=== PATIENT | female | born 1995 | race Caucasian/White ===

== ENCOUNTER 2016-11-02 06:00 | Inpatient (IN) | payer BC, OTHER ==
[2016-11-02] MEDS ORDERED: ceFAZolin 2 GM in SODIUM CHLORIDE 0.9% 100 ML IVPB ONE (10:22)
[2016-11-02] MEDS ORDERED: CITRIC ACID-SODIUM CITRATE 15 ML CUP PO ONE (10:22)
[2016-11-02 10:44] VITALS: BMI 31.4
[2016-11-02] MEDS: LACTATED RINGERS 1,000 ML IV SCH ×2 (11:17→17:39)
[2016-11-02 11:24] LABS: Basophils % (A) 0 %; CH 32.6; CHCM 35.7; Eosinophils # (A) 0.1 k/uL (0-0.7); Eosinophils % (A) 1 %; HCT 33.4 % (34.0-46.0); HDW 2.68; HGB 11.4 gm/dL (11.4-16.0); Luc # (Auto) 0.26; Luc % (Auto) 2; Lymphocytes # (A) 1.5 k/uL (1.0-4.8); Lymphocytes % (A) 12 %; MCH 31.4 pg (25.0-35.0); MCHC 34.2 g/dL (31.0-37.0); MCV 91.9 fL (80.0-100.0); Mean Platelet Volume 8.1; Monocytes # (A) 0.6 k/uL (0-1.0); Monocytes % (A) 5 %; Neutrophils % (A) 81 %; RBC 3.63 m/uL (3.80-5.40); RDW 14.3 % (11.5-15.5); WBC 12.4 k/uL (3.8-10.6); WBC (Perox) 13.12
[2016-11-02] MEDS ORDERED: PHENYLEPHRINE-0.9% NACL SYG 1 MG/10 ML SYRINGE ONE (11:59)
[2016-11-02] MEDS ORDERED: MORPHINE SULFATE (PF) 0.3 MG/0.3 ML SYR ONE (11:59)
[2016-11-02] MEDS ORDERED: NALBUPHINE 10 MG/ML AMPUL ONE (11:59)
[2016-11-02] MEDS ORDERED: ONDANSETRON 4 MG/2 ML VIAL ONE (11:59)
[2016-11-02] MEDS ORDERED: KETOROLAC 30 MG/ML 1 ML VIAL ONE (11:59)
[2016-11-02] MEDS ORDERED: OXYTOCIN 10 UNIT/ML 1 ML VIAL ONE (11:59)
[2016-11-02] MEDS ORDERED: NALOXONE 0.4 MG/ML 1 ML VIAL IV PRN ×2 (12:26→12:55)
[2016-11-02] MEDS ORDERED: ONDANSETRON 4 MG/2 ML VIAL IVP PRN ×2 (12:26→12:55)
[2016-11-02] MEDS ORDERED: diphenhydrAMINE 50 MG/ML 1 ML VIAL IVP PRN ×3 (12:26→12:55)
--- NOTE | 2016-11-02 12:49 | P.HPOB ---
History of Present Illness H&P Date: 11/02/16 This is a 21-year-old white female 1 para 0 EDC 11/06/2016 at 39-3/7 weeks' gestation. Patient presented today with known breech presentation for primary low transverse section. Clinically I believe the infant is on the larger side. Fetus has been active throughout the . She denies vaginal bleeding, fluid leakage, or uterine contractions. Past obstetric history is significant for blood type O+, rubella status immune. Group B strep cultures negative. Hepatitis B surface antigen, Pap smear, gonorrhea and chlamydia cultures, urine culture, VDRL testing all negative. Past medical history is unremarkable. Past surgical history is negative. Current medications Colace as needed, vitamins daily. ALLERGIES none known. Social history patient is single, she previously smoked one half pack tobacco per day, she denies alcohol or drug use. On exam this is a pleasant white female, she is 5 foot 5 inches, 172 pounds, initial blood pressure 104/67, vital signs are stable and she is afebrile. The general physical exam is within normal limits. is breech, confirmed by bedside ultrasound with head in the left upper maternal quadrant. heart rate consistent with reactive NST. Cervix is closed, posterior, 50%, firm. Impression: 39-3/7 weeks intrauterine , breech presentation. Plan For primary low transverse section. All risks benefits and alternatives have been discussed with the patient in detail. Review of Systems Negative except as in HPI. Past Medical History Past Medical History: No Reported History History of Any Multi-Drug Resistant Organisms: None Reported Past Surgical History: No Surgical Hx Reported Past Anesthesia/Blood Transfusion Reactions: No Reported Reaction Past Psychological History: Anxiety, Depression Smoking Status: Never smoker Past Alcohol Use History: None Reported Past Drug Use History: None Reported - Past Family History Mother Family Medical History: Hypertension Medications and Allergies Home Medications Medication Instructions Recorded Confirmed Type Pnv,Calcium 72/Iron/Folic Acid 1 tab PO DAILY 11/02/16 11/02/16 History [ Plus Tablet] Allergies Allergy/AdvReac Type Severity Reaction Status Date / Time No Known Allergies Allergy Verified 11/02/16 10:22 Exam - Vital Signs Vital signs: Vital Signs Temp Pulse Resp BP 11/02/16 10:21 97.2 F L 118 H 18 104/67 Intake and Output 11/01/16 11/02/16 11/02/16 22:59 06:59 14:59 Other: Weight 78.018 kg Patient Weight 11/03/16 06:59 Weight 78.018 kg See full dictation under HPI. Results Result Diagrams: 11/02/16 10:50 Abnormal Lab Results - Last 24 Hours (Table) 11/02/16 Range/Units 10:50 WBC 12.4 H (3.8-10.6) k/uL RBC 3.63 L (3.80-5.40) m/uL Hct 33.4 L (34.0-46.0) % Neutrophils # 10.0 H (1.3-7.7) k/uL Assessment and Plan Plan: Close maternal and surveillance. Anticipate unremarkable low transverse section for breech presentation. Time with Patient: Less than 30
[2016-11-02] MEDS ORDERED: Acetaminophen-Codeine 300-30mg TAB PO PRN (12:55)
[2016-11-02] MEDS ORDERED: KETOROLAC 30 MG/ML 1 ML VIAL IVP PRN (12:55)
[2016-11-02] MEDS ORDERED: ZOLPIDEM 5 MG TAB PO PRN (12:55)
[2016-11-02] MEDS ORDERED: METOCLOPRAMIDE 5 MG/ML 2 ML VIAL IVP PRN (12:55)
[2016-11-02] MEDS ORDERED: diphenhydrAMINE 50 MG CAP PO PRN (12:55)
[2016-11-02] MEDS ORDERED: ACETAMINOPHEN TAB 325 MG TAB PO PRN (12:55)
[2016-11-02] MEDS ORDERED: diphenhydrAMINE 25 MG CAP PO PRN (12:55)
--- NOTE | 2016-11-02 12:55 | P.OP ---
Date of Procedure: 11/02/16 Preoperative Diagnosis: Breech presentation at 39-3/7 weeks Postoperative Diagnosis: Matt annita breech fetus Procedure(s) Performed: Primary low transverse section Anesthesia: spinal Surgeon: Carine Steinberg Incubator Operator #1: Dilma Wheeler Estimated Blood Loss (ml): 500 IV fluids (ml): 900 Urine output (ml): 100 Pathology: other (Placenta) Condition: stable Disposition: PACU Description of Procedure: Patient is brought to the operating suite where a spinal with Duramorph analgesia is administered without difficulty. She's placed in the dorsal supine position with left lateral uterine displacement. Hernandez catheter has been placed to direct drainage and urine is clear. Antibiotics are given. The appropriate timeout is performed to assure proper patient and procedural identification. The abdomen is prepped and draped in usual sterile fashion. Analgesia is checked and noted to be adequate. A low transverse skin incision is made in this is carried down through the subcutaneous tissue which is approximately 2 cm deep. The fascia is isolated, scored and extended bilaterally with curved Taylor scissors. Peritoneum is next identified and incised, there is no bowel or bladder involvement. The latter blade is placed over the dome of the bladder and at all times the bladder is Well from the operative field to avoid bladder and/or ureteral injury. A low transverse uterine incision is made in this is extended bluntly. Official amniorrhexis reveals clear urine. is noted to be in the annita breech presentation and the sacrum is delivered anterior. Pinard maneuver is used to deliver the lower extremities. The trunk is brought through the incision. Pinard maneuver is again used to deliver the upper extremities with over ligation of 180 for the left arm. Head is delivered in the flexed position. Patient is officially delivered of a liveborn female at 1216 hrs. Umbilical cord is doubly clamped and ligated, she is handed to waiting nurses for evaluation where scores of 8 and 9 at one and 5 minutes respectively are given. Infant weighs 3680 g or 8 lbs. 2 oz. The placenta is delivered manually, it is inspected and noted to be intact with trivascular cord at 1217 hrs. Uterus is then massaged and externalized. Hemostasis is excellent. Pitocin is given. The uterus is swept clean with a sterile sponge to avoid any retained products of conception. The uterine edges are grasped with Florez clamps and the uterus is closed in a two-step fashion. 0 Vicryl suture is used with 4-0 running locking stitch initially, and an imbricated stitch on top. Bilateral tubes and ovaries are inspected and noted to be normal. Abdomen is suctioned with suction on guard and uterus is gently placed back into the abdominal cavity. Bilateral gutters are inspected and cleaned. The peritoneum was allowed to close by secondary intention. The fascia is closed in a running stitch of 0 Vicryl with over ligation in the midline. Subcutaneous tissue is irrigated, noted to be clean and dry. It is reapproximated with 3-0 Vicryl in a running fashion. 4-0 Monocryl is used for final subcuticular closure. Steri-Strips and Mastisol are applied to the wound. Fundus is then massaged, it is firm and below the umbilicus. Patient is brought back to the recovery room in excellent condition with stable vital signs including a pulse of 88, blood pressure 115/70. Total estimated blood loss 500 mL's. Urine is noted to be clear in the Hernandez tube.
[2016-11-02] MEDS: KETOROLAC 30 MG/ML 1 ML VIAL IVP PRN (19:54)
[2016-11-02] MEDS: SENNOSIDES-DOCUSATE SODIUM 1 EACH TAB PO SCH (23:07)
[2016-11-03] MEDS: LACTATED RINGERS 1,000 ML IV SCH ×4 (01:37→08:20)
[2016-11-03] MEDS: KETOROLAC 30 MG/ML 1 ML VIAL IVP PRN ×2 (04:24→10:27)
--- NOTE | 2016-11-03 07:09 | P.PN ---
Subjective Principal diagnosis: Postoperative day #1 Slept well, positive flatus. No complaints. Objective - Vital Signs Vital signs: Vital Signs Temp 98.4 F 11/03/16 04:00 Pulse 83 11/03/16 04:00 Resp 16 11/03/16 04:00 BP 107/60 11/03/16 04:00 Pulse Ox 97 11/03/16 04:00 Intake & Output 11/02/16 11/03/16 11/03/16 18:59 06:59 18:59 Intake Total 900 1000 Output Total 100 2600 Balance 800 -1600 Weight 78.018 kg Intake: IV 900 1000 Lactated Ringers 1,000 ml 900 1000 @ 125 mls/hr IV .Q8H DWAINE Rx#:[id number] Output: Urine 100 2600 Uretheral (Hernandez) 800 Other: Voiding Method Indwelling Catheter Indwelling Catheter # Voids 1 - Constitutional General appearance: Present: average body habitus, cooperative - EENT Eyes: Present: PERRLA ENT: Present: hearing grossly normal - Neck Neck: Present: normal ROM Thyroid: bilateral: normal size - Respiratory Respiratory: bilateral: CTA - Cardiovascular Rhythm: regular - Gastrointestinal General gastrointestinal: Present: normal bowel sounds - Integumentary Integumentary Comment(s): Incision clean and dry, intact, well approximated, Steri-Strips applied. Fundus firm, mobile, 18 week size, nontender Integumentary: Present: normal - Neurologic Neurologic: Present: CNII-XII intact - Musculoskeletal Musculoskeletal: Present: gait normal, strength equal bilaterally - Labs CBC & Chem 7: 11/02/16 10:50 Labs: Abnormal Lab Results - Last 24 Hours (Table) 11/02/16 Range/Units 10:50 WBC 12.4 H (3.8-10.6) k/uL RBC 3.63 L (3.80-5.40) m/uL Hct 33.4 L (34.0-46.0) % Neutrophils # 10.0 H (1.3-7.7) k/uL Assessment and Plan Plan: Continue postoperative care, advanced diet and activity, Time with Patient: Less than 30
--- NOTE | 2016-11-03 08:11 | P.PN ---
Progress Note - Text Date:11/03 Time:715 Patient is status post . Patient seen this morning with VAS score of 2. c/o of pruritus, no c/o nausea/vomiting, comfortable and doing well.
[2016-11-03 08:32] LABS: Basophils % (A) 0 %; CH 32.3; CHCM 35.3; Eosinophils # (A) 0.1 k/uL (0-0.7); Eosinophils % (A) 1 %; HCT 27.3 % (34.0-46.0); HDW 2.63; Luc # (Auto) 0.18; Luc % (Auto) 2; Lymphocytes # (A) 1.3 k/uL (1.0-4.8); Lymphocytes % (A) 13 %; MCH 31.8 pg (25.0-35.0); MCHC 34.6 g/dL (31.0-37.0); MCV 91.9 fL (80.0-100.0); Monocytes # (A) 0.4 k/uL (0-1.0); Monocytes % (A) 4 %; Neutrophils # (A) 7.6 k/uL (1.3-7.7); Neutrophils % (A) 79 %; RBC 2.97 m/uL (3.80-5.40); WBC 9.6 k/uL (3.8-10.6); WBC (Perox) 10.53
[2016-11-03 08:33] LABS: HGB 9.5 gm/dL (11.4-16.0)
[2016-11-03] MEDS: SENNOSIDES-DOCUSATE SODIUM 1 EACH TAB PO SCH ×2 (10:12→20:15)
[2016-11-03] MEDS: IBUPROFEN 600 MG TAB PO PRN (16:47)
[2016-11-03] MEDS: SIMETHICONE 80 MG CHEWABLE PO PRN (22:27)
[2016-11-03 23:56] VITALS: BP 107/54; PULSE 84; RESP 17; TEMP 98.8
[2016-11-04] MEDS: IBUPROFEN 600 MG TAB PO PRN (04:20)
[2016-11-04] MEDS: SENNOSIDES-DOCUSATE SODIUM 1 EACH TAB PO SCH (07:56)
[2016-11-04] MEDS: SIMETHICONE 80 MG CHEWABLE PO PRN (07:56)
--- NOTE | 2016-11-04 09:03 | P.DS ---
Providers Date of admission: 11/02/16 10:12 Expected date of discharge: 11/04/16 Attending physician: Carine Steinberg Primary care physician: Carson Argueta - Discharge Diagnosis(es) (1) 39 weeks gestation of Current Visit: Yes Status: Acute (2) Breech presentation Current Visit: Yes Status: Acute (3) S/P section Current Visit: Yes Status: Acute Hospital Course: This is a 21-year-old 1 now para 1 woman who is admitted at 39-3/7 weeks gestation for planned primary low transverse section secondary to breech presentation. Please see the history and physical for details. Following admission she went to the operating room where she underwent an unremarkable primary low transverse section. She was delivered of a liveborn female. Please see the operative report for details. The patient's postoperative course was entirely unremarkable. By postoperative day #1 she was ambulating and voiding without difficulty and tolerating a general diet. Her pain was well-controlled. By postoperative day #2 she continued to do well. Her incision was well healing and her vital signs were stable. She had minimal lochia and was breast-feeding successfully. She was therefore discharged home with routine instructions for postoperative care and follow-up. Procedures: Primary low transverse section Patient Condition at Discharge: Good Plan - Discharge Summary New Discharge Prescriptions: New Acetaminophen-Codeine 300-30mg [Tylenol w/codeine #3] 2 each PO Q4HR PRN #20 tab PRN Reason: Moderate To Severe Pain Ibuprofen [Motrin] 600 mg PO Q6HR PRN tab PRN Reason: Mild Pain Or Fever >= 100.5 No Action Pnv,Calcium 72/Iron/Folic Acid [ Plus Tablet] 1 tab PO DAILY Discharge Medication List Pnv,Calcium 72/Iron/Folic Acid [ Plus Tablet] 1 tab PO DAILY 11/02/16 [ History] Acetaminophen-Codeine 300-30mg [Tylenol w/codeine #3] 2 each PO Q4HR PRN #20 tab 11/04/16 [Rx] Ibuprofen [Motrin] 600 mg PO Q6HR PRN tab 11/04/16 [Rx] Follow up Appointment(s)/Referral(s): Carine Steinberg MD [STAFF PHYSICIAN] - 2 Weeks Activity/Diet/Wound Care/Special Instructions: Follow-up in 2 weeks after surgery in the office. Call the office with any concerning signs or symptoms including fever greater than 101, severe abdominal pain, heavy vaginal bleeding, signs of wound infection, increased swelling or redness of the lower extremities, signs of depression. No driving for 2 weeks after surgery. No heavy lifting or vigorous activity until reevaluated in the office. No intercourse for 6 weeks after delivery. Discharge Disposition: HOME SELF-CARE
== END 2016-11-04 13:10 | disposition home or self-care (01) | DRG 766 ==
LOC: 4FBP 10:12
PROVIDERS: ADMIT Obstetrics & Gynecology; ATTEND Obstetrics & Gynecology
PROC: 3E0S3NZ Introduction of Analgesics, Hypnotics, Sedatives into Epidural Space, Percutaneous Approach (ICD-10-PCS; 2016-11-02)
PROC: 10D00Z1 Extraction of Products of Conception, Low, Open Approach (ICD-10-PCS; principal; 2016-11-02 06:00)
DX: O32.1XX0 Maternal care for breech presentation, not applicable or unspecified (principal); Z86.59 Personal history of other mental and behavioral disorders; Z37.0 Single live birth; Z3A.39 39 weeks gestation of pregnancy; Z87.891 Personal history of nicotine dependence; Z82.49 Family history of ischemic heart disease and other diseases of the circulatory system; Z87.19 Personal history of other diseases of the digestive system
CPT/HCPCS: 85025; 86850; 86900; 86901; 88307

== ENCOUNTER 2021-10-26 09:39 | Inpatient (IN) | payer BC, OTHER ==
[2021-10-26] MEDS ORDERED: CITRIC ACID-SODIUM CITRATE 15 ML CUP PO ONE (10:57)
[2021-10-26 11:13] LABS: Basophils % (A) 0 %; Eosinophils # (A) 0.1 k/uL (0-0.7); Eosinophils % (A) 1 %; HGB 11.1 gm/dL (11.4-16.0); Lymphocytes # (A) 1.3 k/uL (1.0-4.8); Lymphocytes % (A) 17 %; MCH 32.1 pg (25.0-35.0); MCHC 34.9 g/dL (31.0-37.0); MCV 92.1 fL (80.0-100.0); Monocytes # (A) 0.4 k/uL (0-1.0); Monocytes % (A) 5 %; Neutrophils % (A) 76 %; Platelet Count 192 k/uL (150-450); RBC 3.47 m/uL (3.80-5.40); RDW 13.3 % (11.5-15.5)
[2021-10-26] MEDS: LACTATED RINGERS 1,000 ML IV SCH ×3 (11:23→17:16)
[2021-10-26] MEDS ORDERED: KETOROLAC 15 MG/ML 1 ML VIAL ONE (11:54)
[2021-10-26] MEDS ORDERED: ONDANSETRON 4 MG/2 ML VIAL ONE (11:54)
[2021-10-26] MEDS ORDERED: OXYTOCIN 30 UNITS/500 ML NS BAG IV ONE (11:54)
[2021-10-26] MEDS ORDERED: NALBUPHINE 10 MG/ML (1 ML AMP) ONE (11:54)
[2021-10-26] MEDS ORDERED: ePHEDrine 50 MG/ML 1 ML VIAL ONE (11:54)
[2021-10-26] MEDS ORDERED: MORPHINE SULFATE (PF) 0.3 MG/0.3 ML SYR ONE (11:54)
--- NOTE | 2021-10-26 12:01 | P.HPOB ---
History of Present Illness H&P Date: 10/26/21 Chief Complaint: Here for elective repeat at 39 weeks This is a 26-year-old female 2 para 1001 EDC 11/02/2021 at 39 weeks gestation who presents for repeat low transverse section, prior C- section 2016. She denies vaginal bleeding or fluid leakage. Fetus is been active throughout the . Past medical history is negative. Past surgical history 2017 for breech. Current medications vitamins daily. ALLERGIES none known. Family history significant for factor V Leiden disorder, hypothyroidism, IBS. history is significant for blood type O+, rubella status immune. VDRL testing, hepatitis B surface antigen, HIV cultures, gonorrhea and chlamydia cultures all negative. One-hour Glucola 127. Positive group B strep noted in the urine. On exam patient is 5 foot 2 inches, or 160 pounds, vital signs are stable and she is afebrile. The general physical exam is within normal limits. heart rate is consistent with reactive NST. Fundal height is consistent with 39 week intrauterine , vertex presentation. Option for tubal ligation is discussed and declined. Impression: 39 week intrauterine , previous section, declining option for . All signs reassuring. For repeat low transverse section, no tubal ligation. Plan: Antibiotic prophylaxis has been given. We will proceed with primary low transverse section. All risks, benefits, alternatives discussed. All questions answered. Review of Systems Constitutional: Reports as per HPI Past Medical History Past Medical History: No Reported History History of Any Multi-Drug Resistant Organisms: None Reported Past Surgical History: No Surgical Hx Reported Additional Past Surgical History / Comment(s): section 2017 Past Anesthesia/Blood Transfusion Reactions: No Reported Reaction Past Psychological History: Anxiety, Depression Smoking Status: Never smoker Past Alcohol Use History: None Reported Past Drug Use History: None Reported - Past Family History Mother Family Medical History: Hypertension Medications and Allergies Home Medications Medication Instructions Recorded Confirmed Type Pnv,Calcium 72/Iron/Folic Acid 1 tab PO DAILY 11/02/16 10/26/21 History [ Plus Tablet] Acetaminophen-Codeine 300-30mg 2 each PO Q4HR PRN #20 tab 11/04/16 10/26/21 Rx [Tylenol w/codeine #3] Allergies Allergy/AdvReac Type Severity Reaction Status Date / Time No Known Allergies Allergy Verified 10/26/21 10:51 Exam Vital Signs Temp Pulse Resp BP Pulse Ox 10/26/21 10:49 97.9 F 86 16 108/68 99 Intake and Output 10/25/21 10/26/21 10/26/21 22:59 06:59 14:59 Other: Weight 72.575 kg Results Result Diagrams: 10/26/21 10:55 Abnormal Lab Results - Last 24 Hours (Table) 10/26/21 Range/Units 10:55 RBC 3.47 L (3.80-5.40) m/uL Hgb 11.1 L (11.4-16.0) gm/dL Hct 32.0 L (34.0-46.0) % Assessment and Plan Assessment: 39 week intrauterine , here for repeat low transverse section. Positive group B strep per Urine. Plan: Antibiotic prophylaxis has been given. We will proceed with repeat low transverse section. Tubal ligation offered and declined. All questions answered.
[2021-10-26] MEDS ORDERED: NALOXONE 0.4 MG/ML 1 ML VIAL IV PRN (12:45)
[2021-10-26] MEDS ORDERED: SIMETHICONE 80 MG CHEWABLE PO PRN (12:45)
[2021-10-26] MEDS ORDERED: diphenhydrAMINE 25 MG CAP PO PRN (12:45)
[2021-10-26] MEDS ORDERED: METOCLOPRAMIDE 5 MG/ML 2 ML VIAL IVP PRN (12:45)
[2021-10-26] MEDS ORDERED: diphenhydrAMINE 50 MG/ML 1 ML VIAL IVP PRN ×2 (12:45)
[2021-10-26] MEDS ORDERED: diphenhydrAMINE 50 MG CAP PO PRN ×2 (12:45→15:07)
[2021-10-26] MEDS ORDERED: ZOLPIDEM 5 MG TAB PO PRN (12:45)
[2021-10-26] MEDS ORDERED: ONDANSETRON 4 MG/2 ML VIAL IVP PRN (12:45)
--- NOTE | 2021-10-26 12:45 | P.OP ---
Date of Procedure: 10/26/21 Preoperative Diagnosis: 39 week intrauterine , previous section, declining . Postoperative Diagnosis: Same, liveborn female with Apgars of 9 and 9 at one and 5 minutes respectively Procedure(s) Performed: Repeat low transverse section Anesthesia: spinal Surgeon: Carine Steinberg Telecommunication Tower Technician #1: Dilma Wheeler Estimated Blood Loss (ml): 600 IV fluids (ml): 700 Urine output (ml): 50 Pathology: none sent Condition: stable Disposition: PACU Description of Procedure: Patient is brought back to the operative suite where a spinal analgesic is administered without difficulty. She's placed in the dorsal supine position with left lateral uterine displacement. Hernandez catheter to direct drainage, antibiotics given. The appropriate timeout is performed to assure proper patie nt and procedural identification. The abdomen is prepped and draped in usual sterile fashion. Analgesia is checked and noted to be adequate. A repeat low transverse skin incision is made, carried down through the subcutaneous tissue to the fascia. Fascia is 2 cm deep under the subcutaneous tissue, it is scored, extended bilaterally with curved Taylor scissors. Peritoneum is next identified and incised. There is no bowel or bladder involvement. Bladder flap is created with Metzenbaum scissors, at all times the bladder is Well from the operative field to avoid bladder and/or ureteral injury. A repeat low transverse uterine incision is made in this is extended bluntly. Infant is delivered in the occiput anterior position. There is no nuchal cord. The oropharynx, nasopharynx, and external nares were all bulb suctioned prior to delivering the baby. Patient is officially delivered of a liveborn female at 1215 hrs. Umbilical cord is doubly clamped and ligated, she is handed to waiting nurses for evaluation where scores of 9 and 9 at one and 5 minutes respectively are given. The placenta is delivered manually, it is inspected and noted to be intact with trivascular cord, at 1216 hrs. Uterus is then externalized and massaged. Oxytocin is given. The uterus is swept clean with a sterile sponge to avoid any retained products of conception. The uterus is closed in a two-step fashion, first layer running locking with 0 Vicryl, second layer imbricated with the same. Reapproximation and hemostasis is excellent. Bilateral tubes and ovaries appear normal to inspection. The abdomen is suctioned with suction on guard posterior to the uterus, the uterus is gently placed back into the abdominal cavity. Bilateral gutters are inspected and cleaned. Again the uterine incision is inspected and is hemostatically intact. Peritoneum is allowed to close by secondary intention. Fascia is reapproximated with 0 Vicryl suture in a running fashion. Subcutaneous tissue is clean and dry, reapproximated with 3-0 Vicryl in a running fashion. 4-0 undyed Monocryl is used for final skin closure. Uterus is massaged. Total estimated blood loss 700 mL's. Steri-Strips and Mastisol are applied to the wound. Pressure dressing is applied. Urine is noted to be clear in the Hernandez catheter, urine output 50 mL's. Patient is brought back to the recovery room in excellent condition with stable vital signs including a pulse of 94, 99% O2 saturation, blood pressure 124/63.
[2021-10-26] MEDS ORDERED: OXYTOCIN 30 UNITS/500 ML NS 30 UNIT in SALINE 1 500ML.BAG IV SCH (15:15)
[2021-10-26] MEDS: ACETAMINOPHEN TAB 500 MG TAB PO SCH (16:46)
[2021-10-27 06:25] LABS: Basophils % (A) 0 %; Eosinophils # (A) 0.1 k/uL (0-0.7); Eosinophils % (A) 1 %; HCT 26.7 % (34.0-46.0); Lymphocytes # (A) 1.2 k/uL (1.0-4.8); Lymphocytes % (A) 14 %; MCH 31.3 pg (25.0-35.0); MCHC 33.4 g/dL (31.0-37.0); MCV 93.8 fL (80.0-100.0); Monocytes # (A) 0.4 k/uL (0-1.0); Monocytes % (A) 5 %; Neutrophils # (A) 6.6 k/uL (1.3-7.7); Neutrophils % (A) 79 %; Platelet Count 168 k/uL (150-450); RBC 2.85 m/uL (3.80-5.40); WBC 8.3 k/uL (3.8-10.6)
[2021-10-27 06:56] LABS: HGB 8.9 gm/dL (11.4-16.0)
[2021-10-27] MEDS: ACETAMINOPHEN TAB 500 MG TAB PO SCH ×4 (07:40→20:01)
[2021-10-27] MEDS: SENNOSIDES-DOCUSATE SODIUM 1 EACH TAB PO SCH ×3 (07:40→20:01)
[2021-10-27] MEDS: IBUPROFEN 600 MG TAB PO SCH ×3 (07:40→16:17)
[2021-10-27] MEDS: LACTATED RINGERS 1,000 ML IV SCH ×3 (07:40→14:40)
--- NOTE | 2021-10-27 08:17 | P.PN ---
Subjective Progress Note Date: 10/27/21 Principal diagnosis: Doing well postoperative day #1 Negative flatus. Minimal pain. No complaints. Objective - Vital Signs Vital signs: Vital Signs Temp 98.0 F 10/27/21 04:00 Pulse 82 10/27/21 04:00 Resp 16 10/27/21 04:00 BP 104/62 10/27/21 04:00 Pulse Ox 100 10/26/21 16:00 FiO2 Intake & Output 10/26/21 10/27/21 10/27/21 18:59 06:59 18:59 Output Total 1896 2400 Balance -1896 -2400 Weight 72.575 kg Output: Urine 250 1800 Uretheral (Hernandez) 800 Estimated Blood Loss 600 600 Output, Quantitative 1046 Blood Loss Other: Voiding Method Indwelling Catheter Indwelling Catheter - Constitutional General appearance: Present: average body habitus, cooperative - EENT Eyes: Present: PERRLA ENT: Present: hearing grossly normal - Respiratory Respiratory: bilateral: CTA - Cardiovascular Rhythm: regular - Gastrointestinal Gastrointestinal Comment(s): Incision clean and dry, intact. Fundus firm, midline, symmetric, 18 week size. General gastrointestinal: Present: normal bowel sounds - Integumentary Integumentary: Present: normal - Neurologic Neurologic: Present: CNII-XII intact - Musculoskeletal Musculoskeletal: Present: gait normal, strength equal bilaterally - Psychiatric Psychiatric: Present: A&O x's 3, appropriate affect, intact judgment & insight - Labs CBC & Chem 7: 10/27/21 05:34 Labs: Abnormal Lab Results - Last 24 Hours (Table) 10/26/21 10/27/21 Range/Units 10:55 05:34 RBC 3.47 L 2.85 L (3.80-5.40) m/uL Hgb 11.1 L 8.9 L D (11.4-16.0) gm/dL Hct 32.0 L 26.7 L (34.0-46.0) % Assessment and Plan Assessment: Doing well postoperative day #1 Plan: Continue postoperative care. Advanced diet and activity. Likely discharge home tomorrow. Time with Patient: Less than 30
--- NOTE | 2021-10-27 08:25 | P.PN ---
Progress Note - Text Progress Note Date: 10/27/21 (9754) Anesthesia Postop day 1 Subjective: Status Post section with Duramorph. Patient seen and examined. Doing well without complaint. VAS 0. No nausea vomiting or pruritus. Denies fever. Gross lower extremity strength intact. . Without apparent anesthetic complications. Objective: Vital signs reviewed Heart: Regular Rate Lungs: Good chest excursion Abdomen: Appears nondistended Assessment: Status post with Duramorph postop day 1 Plan: Continue current care with your medical management. Anticipated and the Duramorph around midnight tonight, you may see increased pain needs around this time.
[2021-10-28] MEDS: IBUPROFEN 600 MG TAB PO SCH ×5 (00:07→21:45)
[2021-10-28] MEDS: ACETAMINOPHEN TAB 500 MG TAB PO SCH ×4 (03:51→23:21)
--- NOTE | 2021-10-28 08:05 | P.PN ---
Subjective Progress Note Date: 10/28/21 Principal diagnosis: Doing well second postoperative day No complaints. Pain well managed. Minimal lochia rubra. [place] on phototherapy, patient declining discharge home today. Objective - Vital Signs Vital signs: Vital Signs Temp 97.4 F L 10/28/21 00:00 Pulse 84 10/28/21 00:00 Resp 16 10/28/21 00:00 BP 106/67 10/28/21 00:00 Pulse Ox 99 10/27/21 16:22 FiO2 Intake & Output 10/27/21 10/28/21 10/28/21 18:59 06:59 18:59 Intake Total 500 Output Total 1400 Balance -900 Intake: Oral 500 Output: Urine 1400 Other: # Voids 1 2 - Constitutional General appearance: Present: average body habitus, cooperative - EENT Eyes: Present: PERRLA ENT: Present: hearing grossly normal - Respiratory Respiratory: bilateral: CTA - Cardiovascular Rhythm: regular - Gastrointestinal General gastrointestinal: Present: normal bowel sounds - Genitourinary Genitourinary Comment(s): Incision clean and dry, Steri-Strips applied. Fundus firm, midline, symmetric, 18 week size. - Integumentary Integumentary: Present: normal - Neurologic Neurologic: Present: CNII-XII intact - Musculoskeletal Musculoskeletal: Present: gait normal, strength equal bilaterally - Psychiatric Psychiatric: Present: A&O x's 3, appropriate affect, intact judgment & insight - Labs CBC & Chem 7: 10/27/21 05:34 Assessment and Plan Assessment: Doing well second postoperative day. Plan: Per patient request, likely discharge home tomorrow as infant is in the nursery on phototherapy. Continue postoperative care. Time with Patient: Less than 30
[2021-10-28] MEDS: SENNOSIDES-DOCUSATE SODIUM 1 EACH TAB PO SCH ×2 (09:01→21:46)
[2021-10-28 16:55] VITALS: RESP 16
[2021-10-28 23:20] VITALS: TEMP 98
[2021-10-29] MEDS: ACETAMINOPHEN TAB 500 MG TAB PO SCH ×2 (05:35→11:06)
[2021-10-29] MEDS: IBUPROFEN 600 MG TAB PO SCH ×2 (09:03→09:04)
[2021-10-29] MEDS: SENNOSIDES-DOCUSATE SODIUM 1 EACH TAB PO SCH (09:04)
[2021-10-29 09:31] VITALS: BP 120/75; PULSE 77
--- NOTE | 2021-10-29 10:45 | P.DS ---
Providers Date of admission: 10/26/21 10:25 Expected date of discharge: 10/29/21 Attending physician: Carine Steinberg Primary care physician: [facility] Course: This is a 26-year-old female 2 para 1001 EDC 11/02/2021 at 39 weeks gestation who presented for repeat section, declining option for . is remarkable for blood type O positive, rubella status immune, group B strep cultures positive. Please see dictated history and physical for details. Patient underwent a repeat low transverse section giving to a liveborn female infant with scores of 9 and 9 at one and 5 minutes respectively. Infant weighed 7 lbs. 9 oz. or 3430 g. Estimated blood loss 600 mL's. Please see dictated operative note for details. This morning the patient is doing well. She is voiding, ambulating, passing flatus without difficulty. Vital signs are stable and she is afebrile. Fundus is firm and in the midline, symmetric and 18 week size. Extremities are negative for edema. Chest is clear in all [place]. infant is doing well. Patient is judged to be in very good condition for discharge home. She will follow-up with me in the office in 2 weeks. She will call with any fevers shakes or chills, foul smelling or copious lochia, with the passage of large blood clots, with any pain not alleviated by [id number] products, or indeed with any concerns. will follow-up in the office per pediatricians recommendations. Assessment: Doing well postoperative day #3 Patient Condition at Discharge: Good Plan - Discharge Summary Discharge Rx Participant: No New Discharge Prescriptions: No Action Pnv,Calcium 72/Iron/Folic Acid [ Plus Tablet] 1 tab PO DAILY Acetaminophen-Codeine 300-30mg [Tylenol w/codeine #3] 2 each PO Q4HR PRN #20 tab PRN Reason: Moderate To Severe Pain Discharge Medication List Pnv,Calcium 72/Iron/Folic Acid [ Plus Tablet] 1 tab PO DAILY 11/02/16 [History] Acetaminophen-Codeine 300-30mg [Tylenol w/codeine #3] 2 each PO Q4HR PRN #20 tab 11/04/16 [Rx] Follow up Appointment(s)/Referral(s): Carine Steinberg MD [STAFF PHYSICIAN] - 2 Weeks Discharge Disposition: HOME SELF-CARE
== END 2021-10-29 14:10 | disposition home or self-care (01) | DRG 788 ==
LOC: 4FBP 10:25
PROVIDERS: ADMIT Obstetrics & Gynecology; ATTEND Obstetrics & Gynecology
PROC: 10D00Z1 Extraction of Products of Conception, Low, Open Approach (ICD-10-PCS; principal; 2021-10-26 12:00)
DX: O34.211 Maternal care for low transverse scar from previous cesarean delivery (principal); O99.824 Streptococcus B carrier state complicating childbirth; O99.344 Other mental disorders complicating childbirth; F41.9 Anxiety disorder, unspecified; F32.A Depression, unspecified; Z28.310 Unvaccinated for COVID-19; Z3A.39 39 weeks gestation of pregnancy; Z37.0 Single live birth
CPT/HCPCS: 85025; 86850; 86900; 86901

== ENCOUNTER 2023-02-20 10:12 | Inpatient (IN) | payer BC ==
[2023-02-20] MEDS ORDERED: TRANEXAMIC 1,000 MG/100ML-NACL 1,000 MG in EMPTY BAG 1 BAG IV PRN (10:51)
[2023-02-20] MEDS ORDERED: LACTATED RINGERS 1,000 ML IV ONE (10:51)
[2023-02-20] MEDS ORDERED: CITRIC ACID-SODIUM CITRATE 15 ML CUP PO ONE (10:51)
[2023-02-20] MEDS ORDERED: CARBOPROST TROMETHAMINE 250 MCG/ML 1 ML AMP IM PRN (10:51)
[2023-02-20] MEDS ORDERED: METHYLERGONOVINE 0.2 MG/ML 1 ML AMP IM PRN (10:51)
[2023-02-20] MEDS ORDERED: OXYTOCIN 10 UNIT/ML 1 ML VIAL IM PRN (10:51)
[2023-02-20] MEDS ORDERED: miSOPROStoL 200 MCG TAB PO PRN (10:51)
[2023-02-20 11:58] LABS: Basophils % (A) 0 %; Eosinophils # (A) 0.1 k/uL (0-0.7); Eosinophils % (A) 1 %; HCT 32.4 % (34.0-46.0); HGB 11.3 gm/dL (11.4-16.0); Lymphocytes # (A) 1.6 k/uL (1.0-4.8); Lymphocytes % (A) 15 %; MCH 30.9 pg (25.0-35.0); MCHC 34.8 g/dL (31.0-37.0); Mean Platelet Volume 8.8; Monocytes # (A) 0.4 k/uL (0-1.0); Monocytes % (A) 4 %; Neutrophils # (A) 8.6 k/uL (1.3-7.7); Neutrophils % (A) 78 %; Platelet Count 166 k/uL (150-450); RBC 3.64 m/uL (3.80-5.40); RDW 13.2 % (11.5-15.5)
[2023-02-20] MEDS ORDERED: MORPHINE SULFATE (PF) 0.3 MG/0.3 ML SYR ONE (12:09)
[2023-02-20] MEDS ORDERED: KETOROLAC 15 MG/ML 1 ML VIAL ONE (12:09)
[2023-02-20] MEDS ORDERED: OXYTOCIN 30 UNITS/500 ML NS BAG IV ONE (12:09)
[2023-02-20] MEDS ORDERED: NALBUPHINE 10 MG/ML (10 ML MDV) ONE (12:09)
[2023-02-20] MEDS ORDERED: ONDANSETRON 4 MG/2 ML VIAL ONE (12:09)
[2023-02-20] MEDS ORDERED: ZOLPIDEM 5 MG TAB PO PRN (13:16)
[2023-02-20] MEDS ORDERED: diphenhydrAMINE 25 MG CAP PO PRN (13:16)
[2023-02-20] MEDS ORDERED: KETOROLAC 15 MG/ML 1 ML VIAL IVP PRN (13:16)
[2023-02-20] MEDS ORDERED: diphenhydrAMINE 50 MG CAP PO PRN (13:16)
[2023-02-20] MEDS ORDERED: METOCLOPRAMIDE 5 MG/ML 2 ML VIAL IVP PRN (13:16)
[2023-02-20] MEDS ORDERED: diphenhydrAMINE 50 MG/ML 1 ML VIAL IVP PRN ×2 (13:16)
[2023-02-20] MEDS ORDERED: NALOXONE 0.4 MG/ML 1 ML VIAL IV PRN (13:16)
[2023-02-20] MEDS ORDERED: ONDANSETRON 4 MG/2 ML VIAL IVP PRN (13:16)
[2023-02-20] MEDS ORDERED: SIMETHICONE 80 MG CHEWABLE PO PRN (13:16)
--- NOTE | 2023-02-20 13:24 | P.HPOB ---
History of Present Illness H&P Date: 02/20/23 Chief Complaint: 39-2/7 weeks, previous section, requesting repeat The patient is a 28-year-old 3 para 200 to admitted at 39-2/7 weeks as established by 12 week ultrasound. She is admitted for repeat low transverse section having had a previous section. Her has otherwise been entirely uncomplicated and group B strep status is negative. On labor and delivery, all signs reassuring with a category 1 heart rate tracing. Obstetrical history: 3 para 2 scissors or 2 with 2 previous sections at term. Current statistics are listed in history of present illness. EDC of 02/25/2023 was established and 12 week ultrasound. Laboratory workup demonstrates a blood type of O+ with a negative antibody screen. Rubella status is immune. The remainder of laboratory workup was within normal limits. One hour Glucola was not done as the patient had no follow-up from 26 weeks to 35 weeks at which time intervention would have been meaningless. Group B strep status is negative. Gynecologic history: Unremarkable with no history of any infections to include STDs. Review of Systems Review of systems is confined to history of present illness. Past Medical History Past Medical History: No Reported History History of Any Multi-Drug Resistant Organisms: None Reported Past Surgical History: No Surgical Hx Reported Additional Past Surgical History / Comment(s): section 2017 Past Anesthesia/Blood Transfusion Reactions: No Reported Reaction Past Psychological History: Anxiety, Depression Smoking Status: Never smoker Past Alcohol Use History: None Reported Past Drug Use History: None Reported - Past Family History Mother Family Medical History: Hypertension Medications and Allergies Home Medications Medication Instructions Recorded Confirmed Type Pnv,Calcium 72/Iron/Folic Acid 1 tab PO DAILY 11/02/16 02/20/23 History [ Plus Tablet] Allergies Allergy/AdvReac Type Severity Reaction Status Date / Time No Known Allergies Allergy Verified 02/20/23 10:50 Exam Vital Signs Temp Pulse Resp BP Pulse Ox 02/20/23 10:59 97.6 F 105 H 16 112/71 99 Intake and Output 02/19/23 02/20/23 02/20/23 22:59 06:59 14:59 Other: Weight 83.915 kg In general, this is a well-developed, well-nourished white female in no acute distress. Her heart has a regular rhythm and rate without murmur. Her lungs clear to auscultation bilaterally in all hickman. Her abdomen is gravid, no ndistended, has normal active bowel sounds, soft, nontender, and without any palpable masses aside from the uterine fundus. Her extremities are without any cyanosis, clubbing, or edema and are nontender to palpation bilaterally. Digital cervical examination is deferred. Results Result Diagrams: 02/20/23 10:45 Abnormal Lab Results - Last 24 Hours (Table) 02/20/23 Range/Units 10:45 WBC 11.0 H (3.8-10.6) k/uL RBC 3.64 L (3.80-5.40) m/uL Hgb 11.3 L (11.4-16.0) gm/dL Hct 32.4 L (34.0-46.0) % Neutrophils # 8.6 H (1.3-7.7) k/uL Assessment and Plan (1) Previous section Current Visit: Yes Status: Acute Code(s): Z98.891 - HISTORY OF UTERINE SCAR FROM PREVIOUS SURGERY SNOMED Code(s): 613893947 (2) 39 weeks gestation of Current Visit: Yes Status: Acute Code(s): Z3A.39 - 39 WEEKS GESTATION OF SNOMED Code(s): 09382191 Plan: The patient has been counseled regarding repeat low transverse section. She declines intraoperative tubal ligation and a discussion has been undertaken regarding risks of future pregnancies. The risk of the current procedure has been thoroughly discussed and she has understood and agreed to proceed.
[2023-02-20] MEDS ORDERED: OXYTOCIN 30 UNITS/500 ML NS 30 UNIT in SALINE 1 500ML.BAG IV SCH (13:30)
--- NOTE | 2023-02-20 13:30 | P.OP ---
Date of Procedure: 02/20/23 Preoperative Diagnosis: #1. 39-2/7 weeks, previous section x2 Postoperative Diagnosis: Same plus #2. Significant thinning of the lower uterine segment with a small uterine window repaired intraoperatively Procedure(s) Performed: #1. Repeat low transverse section Anesthesia: spinal Surgeon: Cyrus Akers Validation Consultant #1: Brianna Iniguez Estimated Blood Loss (ml): 526 IV fluids (ml): 800 Urine output (ml): 150 Pathology: none sent Condition: stable Disposition: floor Operative Findings: The patient was taken to the operating room where she was delivered of a viable 7 lbs. 3 oz. baby boy with Apgars of 9 at 1 minute and 9 at 5 minutes in the occiput transverse position. The placenta was delivered spontaneously, intact, and grossly normal with a grossly normal three-vessel cord. The fundal portion of the uterus as well as the tubes and ovaries were entirely normal to inspection. The lower uterine segment was significantly thinned with what appeared to be a roughly 1-1/2-2 cm window beneath the bladder flap which was covered only by membranes prior to delivery of the infant. This was closed intraoperatively and incorporated into the incisional repair. Description of Procedure: The patient was prepped and draped in usual fashion after spinal anesthesia was administered by the anesthesiologist. A Pfannenstiel incision was made through pre-existing scar and extended into the abdominal cavity without difficulty. The bladder peritoneum was noted to be scarred fairly high and was elevated, incised, and reflected distally. In the process of reflected distally, what appeared to be a 1-2 cm window was noted in the lower uterine segment which was covered only by a membrane which may have been the amniotic membranes themselves. A 27 m incision was made well above the area of the window in a more solid portion of the lower uterine segment to enter the uterus at which time clear fluid was noted. The incision was extended in both directions using the bandage scissors. The head was delivered up and through the incision where the nose and mouth were thoroughly suctioned. The remainder of the infant was delivered onto the field where the cord was doubly clamped, cut, and passed for resuscitative measures with weight and Apgars as noted above. The center was delivered manually and intact as noted above. The uterus was exteriorized and the interior cavity of the uterus swept of any remaining placental or membranous fragments. The margins of the uterine incision were grasped with Florez clamps with the central lower uterine segment clamp used to incorporate the window. The incision was closed in 2 layers. The first layer was a running locking stitch of 0 chromic catgut followed by a running imbricating stitch of 0 chromic catgut. The area where the window had been appeared to be as well supported as could be expected. Urine remained clear throughout as the bladder appeared to be fairly distal to the site of the window having reflected it earlier. The posterior cul-de-sac was suctioned with a guard followed by laparotomy sponge and the uterus replaced within the abdominal cavity. The gutters were swept of any remaining blood, fluid, or clot. The incision was reexamined and any small points of bleeding were made hemostatic with the Bovie. After noting hemostasis, the parietal peritoneum was loosely reapproximated in the layer of muscles examined and made hemostatic with the Bovie. The fascia was closed with 2 stitches of 0 Vicryl proceeding from the lateral margins to the midpoint. The subcutaneous tissues were irrigated, made hemostatic with the Bovie, and reapproximated with a running stitch of 30 plain catgut. The skin was reapproximated with a running subcuticular stitch of 4-0 Vicryl from margin to margin followed by half-inch Steri-Strips placed with Mastisol. Quantitative blood loss for the case was 526 mL. There were no complications. All sponge, instrument, needle counts were correct. The patient tolerated the procedure well and proceeded to the recovery room in stable condition. Both mother and infant are resting comfortably in recovery.
[2023-02-20] MEDS: ACETAMINOPHEN TAB 500 MG TAB PO SCH (16:20)
[2023-02-20] MEDS: LACTATED RINGERS 1,000 ML IV SCH ×2 (16:22→22:03)
[2023-02-20] MEDS: SENNOSIDES-DOCUSATE SODIUM 1 EACH TAB PO SCH (22:03)
[2023-02-21] MEDS: IBUPROFEN 600 MG TAB PO SCH ×4 (02:18→20:57)
[2023-02-21] MEDS: ACETAMINOPHEN TAB 500 MG TAB PO SCH ×4 (02:18→23:20)
--- NOTE | 2023-02-21 07:11 | P.PN ---
Progress Note - Text Progress Note Date: 02/21/23 Postop day 1 from under spinal anesthesia with intrathecal morphine given for postop pain management. Patient is doing well. Pain is well controlled. On visual analog scale 1/10 Mild itching present No nausea or vomiting reported. No Headache or weakness and numbness in the legs. No complications from spinal anesthesia.
[2023-02-21 07:41] LABS: Basophils % (A) 0 %; Eosinophils # (A) 0.1 k/uL (0-0.7); Eosinophils % (A) 1 %; HCT 25.9 % (34.0-46.0); Lymphocytes % (A) 12 %; MCHC 34.2 g/dL (31.0-37.0); MCV 90.8 fL (80.0-100.0); Mean Platelet Volume 8.7; Monocytes # (A) 0.3 k/uL (0-1.0); Monocytes % (A) 3 %; Neutrophils # (A) 7.4 k/uL (1.3-7.7); Neutrophils % (A) 82 %; Platelet Count 150 k/uL (150-450); RBC 2.85 m/uL (3.80-5.40); RDW 13.1 % (11.5-15.5)
[2023-02-21 07:45] LABS: HGB 8.8 gm/dL (11.4-16.0)
--- NOTE | 2023-02-21 08:42 | P.PNOBGPC ---
Subjective - Subjective Patient reports: Reports appetite normal, Reports voiding normally, Reports pain well controlled, Reports ambulating normally : doing well Objective - Vital Signs Latest vital signs: Vital Signs Temp Pulse Resp BP Pulse Ox 02/21/23 08:00 98.2 F 74 16 91/53 97 02/21/23 04:00 98.3 F 66 18 107/52 02/21/23 00:00 98.7 F 77 18 103/66 02/20/23 20:00 98.4 F 77 18 103/64 02/20/23 16:00 97.8 F 71 16 105/61 97 02/20/23 15:15 98.3 F 68 16 112/59 98 02/20/23 14:45 70 16 102/60 99 02/20/23 14:15 77 16 103/58 99 02/20/23 14:00 75 16 120/55 99 02/20/23 13:45 79 16 115/71 98 02/20/23 13:30 66 16 115/61 99 02/20/23 13:15 97.1 F L 81 16 105/69 97 02/20/23 10:59 97.6 F 105 H 16 112/71 99 Intake and Output 02/20/23 02/21/23 02/21/23 22:59 06:59 14:59 Intake Total 500 Output Total 105 800 Balance 395 -800 Intake: Oral 500 Output: Urine 800 Output, Quantitative 105 Blood Loss Other: Voiding Method Indwelling Catheter - Exam Extremities: Present: normal Abdomen: Present: normal appearance, soft. Absent: distention, tenderness Incision: Present: normal, dry, intact Uterus: Present: normal, firm (The uterine fundus is tonic and appropriately tender below the umbilicus.) - Labs Labs: Abnormal Lab Results - Last 24 Hours (Table) 02/20/23 02/21/23 Range/Units 10:45 06:50 WBC 11.0 H (3.8-10.6) k/uL RBC 3.64 L 2.85 L (3.80-5.40) m/uL Hgb 11.3 L 8.8 L D (11.4-16.0) gm/dL Hct 32.4 L 25.9 L (34.0-46.0) % Neutrophils # 8.6 H (1.3-7.7) k/uL Assessment and Plan (1) Previous section Current Visit: Yes Status: Acute Code(s): Z98.891 - HISTORY OF UTERINE SCAR FROM PREVIOUS SURGERY SNOMED Code(s): 480141138 (2) 39 weeks gestation of Current Visit: Yes Status: Acute Code(s): Z3A.39 - 39 WEEKS GESTATION OF SNOMED Code(s): 30392868 (3) S/P section Current Visit: Yes Status: Acute Code(s): Z98.891 - HISTORY OF UTERINE SCAR FROM PREVIOUS SURGERY SNOMED Code(s): 600980913 Plan: Continue routine and postoperative care. The patient has been encouraged ambulate in the hallways routinely. I would anticipate discharge home tomorrow pending no complications.
[2023-02-21] MEDS: SENNOSIDES-DOCUSATE SODIUM 1 EACH TAB PO SCH ×2 (13:14→20:57)
[2023-02-22] MEDS: ACETAMINOPHEN TAB 500 MG TAB PO SCH ×2 (02:06→07:00)
[2023-02-22] MEDS: IBUPROFEN 600 MG TAB PO SCH ×3 (02:06→10:42)
--- NOTE | 2023-02-22 08:40 | P.DS ---
Providers Date of admission: 02/20/23 10:12 Expected date of discharge: 02/22/23 Attending physician: Cyrus Akers Primary care physician: Stated None - Discharge Diagnosis(es) (1) Previous section Current Visit: Yes Status: Acute (2) 39 weeks gestation of Current Visit: Yes Status: Acute (3) S/P section Current Visit: Yes Status: Acute Hospital Course: The patient is a 28-year-old 3 para 2001 admitted at 39-2/7 weeks by good dating parameters perches admitted for repeat low transverse section with history of 2 previous sections. Her was uncomplicated and group B strep status is negative. Heart tones were reassuring with a category 1 heart rate tracing. She was taken to the operating room where she underwent repeat low transverse section and uncomplicated fashion. At the time of surgery, she was found to have a fairly significant window for approximately 1-2 cm covered only by membranes which was incorporated into the repair of the hysterotomy. She was delivered of a viable 7 lbs. 3 oz. baby boy with Apgars of 9 at 1 minute and 9 at 5 minutes. Her and postoperative course was unremarkable with vital signs remained stable and her temperature was afebrile throughout. She was deemed stable for discharge on postoperative day #2 and was discharged home to follow-up in the office in 2 weeks for an incision check and 6 weeks routinely. Discharge instructions included calling for any significantly increased bleeding or foul- smelling lochia, significantly increased fever abdominal pain, perineal co mplaints, breast complaints, incisional complaints, or anything else that concerned her. She understood her instructions and agrees to follow up as noted above. Discharge medications included continued [id number] analgesic pain medications as well as a prescription for Tylenol 3, 1-2 by mouth every 6 hours as needed, #20 dispensed with no refills. Maternal blood type is O+ and rubella status is immune. Discharge hemoglobin and hematocrit were 8.8 and 25.9 respectively. Procedures: #1. Repeat low transverse section Patient Condition at Discharge: Stable Plan - Discharge Summary New Discharge Prescriptions: No Action Pnv,Calcium 72/Iron/Folic Acid [ Plus Tablet] 1 tab PO DAILY Discharge Medication List Pnv,Calcium 72/Iron/Folic Acid [ Plus Tablet] 1 tab PO DAILY 11/02/16 [History] Follow up Appointment(s)/Referral(s): Cyrus Akers MD [STAFF PHYSICIAN] - 2 Weeks Discharge Disposition: HOME SELF-CARE
[2023-02-22 09:05] VITALS: BP 105/69; PULSE 76; RESP 16; TEMP 99.5
[2023-02-22] MEDS: SENNOSIDES-DOCUSATE SODIUM 1 EACH TAB PO SCH ×2 (09:16→10:42)
== END 2023-02-22 14:15 | disposition home or self-care (01) | DRG 788 ==
LOC: 4FBP 10:12
PROVIDERS: ADMIT Obstetrics & Gynecology; ATTEND Obstetrics & Gynecology
PROC: 10D00Z1 Extraction of Products of Conception, Low, Open Approach (ICD-10-PCS; principal; 2023-02-20 12:00)
DX: O34.211 Maternal care for low transverse scar from previous cesarean delivery (principal); F41.9 Anxiety disorder, unspecified; F32.A Depression, unspecified; O99.344 Other mental disorders complicating childbirth; Z82.49 Family history of ischemic heart disease and other diseases of the circulatory system; Z3A.39 39 weeks gestation of pregnancy; Z37.0 Single live birth
CPT/HCPCS: 85025; 86850; 86900; 86901

== ENCOUNTER 2023-02-24 08:35 | Emergency (ER) | payer BC ==
--- NOTE | 2023-02-24 10:16 | ED ---
General Adult HPI - General Source: patient Mode of arrival: ambulatory Limitations: no limitations <Elmer Patino - Last Filed: 02/24/23 16:47> <Juana Torres - Last Filed: 02/28/23 03:46> - General Chief complaint: Skin/Abscess/Foreign Body Stated complaint: c section pain - History of Present Illness Initial comments: Quick Note in triage: Patient states she has a rash along her abdomen and is concerned it is infection. She had a 4 days ago. She feels like some straw colored clear fluid is leaking. She denies fevers. Denies pain. Her OB is Dr Akers. Verbally signed by Elmer Patino PAC 02/24/22 [id number] (Elmer Patino) Quick note reviewed. This is a 28-year-old female presents emergency Department with a chief complaint of rash. Patient reports that she recently had a performed on 02/20/2023. She reports rash around the surgical site that is itchy. She reports a strokelike clear fluid from the site. She denies any known fevers or chills. Surgical site is not painful. Primary GREENHOUSE FLORIST is Dr. Bai. Denies any vaginal bleeding. (Juana Torres) - Related Data Home Medications Medication Instructions Recorded Confirmed Pnv,Calcium 72/Iron/Folic Acid 1 tab PO DAILY 11/02/16 02/20/23 [ Plus Tablet] Allergies Allergy/AdvReac Type Severity Reaction Status Date / Time No Known Allergies Allergy Verified 02/24/23 08:44 Review of Systems ROS Other: All systems not noted in ROS Statement are negative. <Elmer Patino - Last Filed: 02/24/23 16:47> ROS Other: All systems not noted in ROS Statement are negative. <Juana Torres - Last Filed: 02/28/23 03:46> ROS Statement: Those systems with pertinent positive or pertinent negative responses have been documented in the HPI. Past Medical History Past Medical History: No Reported History History of Any Multi-Drug Resistant Organisms: None Reported Past Surgical History: No Surgical Hx Reported Additional Past Surgical History / Comment(s): section 2017 Past Anesthesia/Blood Transfusion Reactions: No Reported Reaction Past Psychological History: Anxiety, Depression Smoking Status: Never smoker Past Alcohol Use History: None Reported Past Drug Use History: None Reported - Past Family History Mother Family Medical History: Hypertension <Elmer Patino - Last Filed: 02/24/23 16:47> General Exam Limitations: no limitations <Elmer Patino - Last Filed: 02/24/23 16:47> <Juana Torres - Last Filed: 02/28/23 03:46> - General Exam Comments Initial Comments: General: Alert, in no acute distress Head: atraumatic normocephalic. Eyes PERRL, EOMI intact, mucous membranes moist Respiratory: Lungs clear to auscultation bilaterally Cardiovascular: Regular rate and rhythm Abdominal: Soft without guarding or rebound, surgical scar peels well healed at the time of evaluation with Steri-Strips intact with generalized erythema, dryness. It is nontender. Nonfluctuant Extremities: Normal inspection with full range of motion and normal capillary refill Neuroogic: alert and oriented 3, CN II-XII intact, able to ambulate with steady gait Skin: warm dry and intact with normal color (Juana Torres) Course Vital Signs 02/24/23 02/24/23 02/24/23 08:42 12:13 12:17 Temperature 98 F 98.4 F 98.4 F Pulse Rate 111 H 98 98 Respiratory 20 18 18 Rate Blood Pressure 115/77 118/76 118/76 O2 Sat by Pulse 99 99 99 Oximetry Medical Decision Making <Juana Torres - Last Filed: 02/28/23 03:46> - Medical Decision Making Was pt. sent in by a medical professional or institution (, PA, AIRPORT OPERATIONS OFFICER, urgent care, hospital, or long-term...) When possible be specific @ -[No] Did you speak to anyone other than the patient for history (EMS, parent, family, police, friend...)? What history was obtained from this source @ -[No] Did you review nursing and triage notes (agree or disagree)? Why? @ -[I reviewed and agree with nursing and triage notes] Were old charts reviewed (outside hosp., previous admission, EMS record, old EKG, old radiological studies, urgent care reports/EKG's, long-term records)? Report findings @ -02/20/2022 Differential Diagnosis (chest pain, altered mental status, abdominal pain women, abdominal pain men, vaginal bleeding, weakness, fever, dyspnea, syncope, headache, dizziness, GI bleed, back pain, seizure, CVA, palpatations, mental health, musculoskeletal)? @ -[not applicable] EKG interpreted by me (3pts min.). @ -[As above] X-rays interpreted by me (1pt min.). @ -[None done] CT interpreted by me (1pt min.). @ -[None done] U/S interpreted by me (1pt. min.). @ -[None done] What testing was considered but not performed or refused? (CT, X-rays, U/S, labs)? Why? @ -[None] What meds were considered but not given or refused? Why? @ -[None] Did you discuss the management of the patient with other professionals (professionals i.e. , PA, AIRPORT OPERATIONS OFFICER, lab, RT, psych nurse, outreach and education social worker, claims analyst, teacher, recruitment officer, rn field case manager)? Give summary @ -[No] Was smoking cessation discussed for >3mins.? @ -[No] Was critical care preformed (if so, how long)? @ -[No] Were there social determinants of health that impacted care today? How? (Homelessness, low income, unemployed, alcoholism, drug addiction, transportation, low edu. Level, literacy, decrease access to med. care, snf, rehab)? @ -[No] Was there de-escalation of care discussed even if they declined (Discuss DNR or withdrawal of care, Hospice)? DNR status @ -[No] What co-morbidities impacted this encounter? (DM, HTN, Smoking, COPD, CAD, Cancer, CVA, ARF, Chemo, Hep., AIDS, mental health diagnosis, sleep apnea, morbid obesity)? @ -[None] Was patient admitted / discharged? Hospital course, mention meds given and route, prescriptions, significant lab abnormalities, going to OR and other pertinent info. @ -Discharged. This is a pleasant 28-year-old female presents emergency Department with a chief complaint of rash. Patient had thorough history and physical exam performed. Vital signs are stable. Heart rate regular rate and rhythm, lungs auscultation bilaterally. Caesarian section abdominal scar appears well-healed. There is generalized erythema and dryness to the area however is not painful. Patient provided urinates and topical steroid cream. Recommend close follow-up with primary GREENHOUSE FLORIST. Return precautions discussed at length. Discharged in stable condition. Case is discussed with Dr. Willson, ED attending who agrees with plan of care Undiagnosed new problem with uncertain prognosis? @ -[No] Drug Therapy requiring intensive monitoring for toxicity (Heparin, Nitro, Insulin, Cardizem)? @ -[No] Were any procedures done? @ -[No] Diagnosis/symptom? @ -Rash Acute, or Chronic, or Acute on Chronic? @ -Acute Uncomplicated (without systemic symptoms) or Complicated (systemic symptoms)? @ -Uncomplicated Side effects of treatment? @ -[No] Exacerbation, Progression, or Severe Exacerbation? @ -[No] Poses a threat to life or bodily function? How? (Chest pain, [place], MA, pneumonia, PE, COPD, DKA, ARF, appy, cholecystitis, CVA, Diverticulitis, Homicidal, Suicidal, threat to staff... and all critical care pts) @ -[No] (Juana Torres) Disposition <Elmer Patino - Last Filed: 02/24/23 16:47> Is patient prescribed a controlled substance at d/c from ED?: No Time of Disposition: 12:02 <Juana Torres - Last Filed: 02/28/23 03:46> Clinical Impression: Rash Disposition: HOME SELF-CARE Condition: Stable Instructions (If sedation given, give patient instructions): Dermatitis (ED) Additional Instructions: PLease apply steroid cream to upper belly area, avoid steroid to incisional site Please keep the area clean and dry and maximize exposure to the air time during the day Please follow-up with Dr. Bai 03/08/2022 Please return to the nearest emergency department if purulent, bloody discharge or high fever develops Referrals: Sebastian Gamino MD [Primary Care Provider] - 1-2 days
[2023-02-24] MEDS ORDERED: diphenhydrAMINE 25 MG CAP PO STA (11:53)
[2023-02-24 12:30] VITALS: BP 118/76; PULSE 98; RESP 18; TEMP 98.4
[2023-02-24] MEDS ORDERED: TRIAMCINOLONE 0.1% CREAM 80 GM TUBE TOPICAL SCH (13:00)
== END 2023-02-24 12:20 | disposition home or self-care (01) ==
LOC: EC 08:35
DX: O99.893 Other specified diseases and conditions complicating puerperium (principal); R21 Rash and other nonspecific skin eruption
CPT/HCPCS: 99283

== ENCOUNTER → 2024-06-13 | Outpatient (CLI) | payer OTHER ==
--- NOTE | 2024-06-13 17:13 | US ---
EXAMINATION TYPE: US OB anatomy transabd DATE OF EXAM: 06/13/2024 COMPARISON: NONE CLINICAL INDICATION: Female, 29 years old with history of Z34.90 SUPRVSN OF NORMAL ; supervi therese of normal preg TECHNIQUE: Transabdominal (TA) with grayscale imaging of single gestation. FINDINGS: EXAM MEASUREMENTS: GESTATIONAL AGE / DATING Physician Established: Not established yet Dates by LMP: Unknown Dates by First Scan: No previous this is first scan Dates by Current Scan for: (34 weeks/3 days) EDC: 07/22/2024 SURVEY IUP: Single PLACENTA: Anterior PREVIA: No previa MAGUI: 12.4 cm Normal CERVICAL LENGTH (transabdominal: norm > 3.0cm): 3.9 cm BIOMETRY PRESENTATION: Vertex LIE: Longitudinal BPD: 8.4 cm 34 weeks / 0 days HC: 31.3 cm 35 weeks / 1 days AC: 30.7 cm 34 weeks / 5 days FL: 6.5 cm 33 weeks / 5 days ESTIMATED WEIGHT IN GRAMS: 2407 grams ESTIMATED WEIGHT IN LBS/OZ: 5 lbs. 5 oz. WEIGHT PERCENTAGE BASED ON ESTABLISHED DATE: lmp unknown HC/AC: 1.02 FL/AC: 21% HEART RATE: 139 bpm RHYTHM: Normal ANATOMY SEEN (within normal limits): * Lateral Vent (< 1 cm) 0.8 cm * Cisterna Magna (< 1.1 cm) 0.8 cm * Nuchal Fold * Cerebellum (varies with age) 5.0 cm Choroid Plexus (bilateral) Midline Falx Cavus Septi Pellucidi Four Chamber Heart Outflow tracts: LVOT/RVOT Stomach Situs Nose / Lips Diaphragm Kidneys (bilateral) Bladder Cord Insert Three Vessel Cord Longitudinal Spine Transverse Spine Arms (bilateral) Legs (bilateral) ANATOMY SEEN (does not appear within normal limits): ANATOMY NOT SEEN: exam limited by advanced age IMPRESSION: Single viable intrauterine with the portions of the study limited by advanced age. [facility], , 06/13/2024 5:11 PM
== END | disposition home or self-care (01) ==
LOC: RADUSWWP 15:43
DX: Z34.93 Encounter for supervision of normal pregnancy, unspecified, third trimester (principal); Z3A.34 34 weeks gestation of pregnancy
CPT/HCPCS: 76811

== ENCOUNTER → 2024-06-20 | Outpatient (CLI) | payer OTHER ==
[2024-06-20 17:17] LABS: BUN/Creat Ratio 19.75 Ratio (12.00-20.00); Blood Urea Nitrogen 7.9 mg/dL (9.0-27.0); Glucose 125 mg/dL (70-110)
[2024-06-20 17:18] LABS: ALT 8 U/L (8-44); AST 16 U/L (13-35); Albumin 3.4 g/dL (3.8-4.9); Albumin/Globulin Ratio 1.36 Ratio (1.60-3.17); Alkaline Phosphatase 111 U/L (41-126); Calcium 8.6 mg/dL (8.7-10.3); Carbon Dioxide 20.4 mmol/L (21.6-31.8); Chloride 105 mmol/L (96-109); Globulin 2.5 g/dL (1.6-3.3); Potassium 3.4 mmol/L (3.5-5.5); Sodium 137 mmol/L (135-145); Total Bilirubin <0.2 mg/dL (0.3-1.2); Total Protein 5.9 g/dL (6.2-8.2)
== END | disposition home or self-care (01) ==
LOC: LABWHC1 08:18
DX: Z34.90 Encounter for supervision of normal pregnancy, unspecified, unspecified trimester (principal)
CPT/HCPCS: 36415; 80053; 82950; 86850; 86900; 86901

== ENCOUNTER → 2024-06-26 | Outpatient (CLI) | payer OTHER ==
[2024-06-26 14:47] LABS: Basophils # (A) 0.03 X 10*3/uL (0.00-0.10); Basophils % (A) 0.3 %; Eosinophils # (A) 0.16 X 10*3/uL (0.04-0.35); Eosinophils % (A) 1.6 %; HCT 32.5 % (37.2-46.3); HGB 10.9 g/dL (12.0-15.0); Lymphocytes # (A) 1.55 X 10*3/uL (0.90-5.00); Lymphocytes % (A) 15.6 %; MCH 30.1 pg (27.0-32.0); MCHC 33.5 g/dL (32.0-37.0); MCV 89.8 FL (80.0-97.0); Mean Platelet Volume 10.7 FL (9.5-12.2); Monocytes # (A) 0.67 X 10*3/uL (0.20-1.00); Monocytes % (A) 6.8 %; NRBC Per 100 WBC 0 X 10*3/uL (0.00-0.01); Neutrophils # (A) 7.46 X 10*3/uL (1.80-7.70); Neutrophils % (A) 75.3 %; Platelet Count 167 X 10*3/uL (140-440); RBC 3.62 X 10*6/uL (4.10-5.20); RDW 13.1 % (11.5-14.5); WBC 9.91 X 10*3/uL (4.50-10.00)
== END | disposition home or self-care (01) ==
LOC: LABWHC1 08:15
DX: Z34.90 Encounter for supervision of normal pregnancy, unspecified, unspecified trimester (principal)
CPT/HCPCS: 36415; 85025